=== PATIENT | female | born 1960 | race Caucasian/White ===

== ENCOUNTER → 2017-05-10 | Outpatient (CLI) | payer MEDICAID ==
--- NOTE | 2017-05-10 12:50 | US ---
HISTORY: Dysfunctional postmenopausal uterine bleeding Study: Pelvic ultrasound: Multiplanar ultrasonographic examination of the pelvis was performed aceves sabdominally. Comparison: None Findings: On the images submitted to ga the uterus is mildly enlarged and mild heterogeneous. The uterus measu res 7.0 cm in length by 4.5 x 5.8 cm. The endometrium is mildly thickened at 8.5 mm for a postmenopa usal patient. There appear to be 2 leiomyomas present. One in the posterior wall measuring 3.2 cm i n maximum dimension. It appears to be partially submucosal. There is a another present posteriorly measuring approximately 2.3 cm in maximum dimension, also appearing to be partially submucosal. Examination of the right adnexa reveals a soft tissue structure measuring 2.7 x 2.2 x 2.1 cm felt to represent a normal-appearing right ovary. Examination left adnexa reveals a small soft tissue structure measuring 1.9 x 12.4 x 2.0 cm felt to r epresent a normal-appearing left ovary. There is no evidence free pelvic fluid The visualized urinary bladder is normal. IMPRESSION: 1. Enlarged uterus with what appear to be 2 partially submucosal uterine leiomyomas 2. Mild thickening of the endometrial echo complex. Correlation with hormonal therapy is recommende d. Endometrial hyperplasia cannot be excluded. 3. Normal-appearing ovaries for the patient's age. Reported By:
== END ==
LOC: RAD 09:21
PROVIDERS: ATTEND Obstetrics & Gynecology Obstetrics
DX: N93.8 Other specified abnormal uterine and vaginal bleeding (principal)
CPT/HCPCS: 76856